=== PATIENT | female | born 1970 | race Caucasian/White ===

== ENCOUNTER → 2017-04-25 | Outpatient (CLI) | payer BC ==
--- NOTE | 2017-04-25 19:08 | WOMENS IMAGING REPORT ---
EXAM DESCRIPTION: 3D SCREENING MAMMO BILAT COMPLETED DATE/TIME: 04/25/2017 7:50 am REASON FOR STUDY: SCREENING MAMMO Z12.31 ENCNTR SCREEN MAMMOGRAM FOR MALIGNANT NEOPLASM OF SLIM COMPARISON: No previous available TECHNIQUE: Standard craniocaudal and mediolateral oblique views of each breast recorded using digita l acquisition and breast tomosynthesis. LIMITATIONS: None. FINDINGS: No masses, calcifications or architectural distortion. No areas of suspicion. Read with the assistance of CAD. .[facility] - R2 Cenova Version 1.3 .[facility] - R2 Cenova Version 1.3 .[facility] Imaging - R2 Cenova Version 2.4 .[facility] - R2 Cenova Version 2.4 .[facility] - R2 Lip Cutter Version 9.2 IMPRESSION: NORMAL MAMMOGRAM. BIRADS 1. BREAST DENSITY: b. There are scattered areas of fibroglandular density. BIRAD: 1 NEGATIVE RECOMMENDATION: ROUTINE SCREENING Please continue yearly bilateral screening tomosynthesis in April 2018 COMMENT: The patient has been notified of the results by letter per MQSA requirements. Additional no tification policies are in place for contacting patient with suspicious or incomplete findings. Quality ID #225: The [employer] recommends an annual screening mammogram for women aged 40 years or over. This facility utilizes a reminder system to ensure that all patients receive reminder letters, and/or direct phone calls for appointments. This includes reminders for routine scr eening mammograms, diagnostic mammograms, or other Breast Imaging Interventions when appropriate. Th is patient will be placed in the appropriate reminder system. The [employer] (ACR) has developed recommendations for screening MRI of the breast s in certain patient populations, to be used in conjunction with mammography. Breast MRI surveillanc e may be appropriate for women with more than 20% lifetime risk of developing breast cancer as deter mined by genetic testing, significant family history of the disease, or history of mantle radiation f or Hodgkins Disease. ACR Practice Guidelines 2008. DBT Technology DBT is a type of tomographic mammography. With conventional mammography, overlapping breast tissue ma y make lesions difficult to detect, even with good compression. DBT uses an x-ray tube that rotates a round the breast, taking images at different angles. These images are then combined to create thin sl ices of the breast that the radiologist can view as a 3D reconstruction. The [employer] unit can perform full-field digital mammograms (2D imaging); or DBT (3D imaging); or both, in a combination mode that quickly performs both the mammogram and the tomosynthesis scan while the breast is still compressed. PQRS 6045F: Fluoroscopic imaging is not utilized for breast tomosynthesis. TECHNICAL DOCUMENTATION: FINDING NUMBER: (1) ASSESSMENT: (1) JOB ID: [id number] [employer]- All Rights Reserved
== END ==
LOC: WI 07:22
PROVIDERS: ATTEND Nurse Practitioner
DX: Z12.31 Encounter for screening mammogram for malignant neoplasm of breast (principal)
CPT/HCPCS: 77063; G0202; 77067

== ENCOUNTER 2017-09-07 10:49 | Emergency (ER) | payer BC ==
[2017-09-07] MEDS ORDERED: ONDANSETRON 4 MG TAB.RAPDIS PO ONE (11:21)
[2017-09-07] MEDS ORDERED: OXYCODONE HCL IR 5 MG TABLET PO ONE (11:21)
--- NOTE | 2017-09-07 11:23 | ER Document Report ---
ED Medical Screen (RME) - General Chief Complaint: Abdominal Pain Stated Complaint: BACK/ABDOMINAL PAIN, DIZZY Time Seen by Provider: 09/07/17 11:17 Notes: RME DISCLOSURE I have seen this patient as part of a Rapid Medical Evaluation and, if applicable, placed any initially appropriate orders. The patient will be seen and fully evaluated, including a full history and physical exam, by a provider ( in Main ED or Fast Track) when a room becomes available. 47-year-old female here with complaints of right-sided abdominal pain radiating down part of the right thigh as well as multiple episodes of nausea and vomiting that started yesterday and have been progressively worsening. She has tried taking ibuprofen for the pain. She has not had any fevers. She still has her gallbladder and her appendix. EXAM Moderate right upper quadrant tenderness to palpation Minimal to mild right lower quadrant tenderness to palpation No epigastric tenderness to palpation TRAVEL OUTSIDE OF THE [place] IN LAST 30 DAYS: No - Related Data Allergies/Adverse Reactions: No Known Allergies Allergy (Unverified 09/07/17 10:50) Past Medical History - Social History Frequency of alcohol use: None Drug Abuse: None Renal/ Medical History: Denies: Hx Peritoneal Dialysis Physical Exam - Vital signs Vitals: Temp Pulse Resp BP Pulse Ox 98.2 F 69 18 148/86 H 98 09/07/17 10:59 09/07/17 10:59 09/07/17 10:59 09/07/17 10:59 09/07/17 10:59 Course - Vital Signs Vital signs: Temp Pulse Resp BP Pulse Ox 98.2 F 69 18 148/86 H 98 09/07/17 10:59 09/07/17 10:59 09/07/17 10:59 09/07/17 10:59 09/07/17 10:59 Doctor's Discharge - Discharge Referrals: ALONSO TUCKER, [Primary Care Provider] - Follow up as needed
[2017-09-07 12:37] LABS: ABSOLUTE EOSINOPHILS # (AUTO) 0.2 10^3/uL (0.0-0.6); ABSOLUTE LYMPHOCYTES (AUTO) 1.8 10^3/uL (0.5-4.7); ABSOLUTE MONOCYTES (AUTO) 0.6 10^3/uL (0.1-1.4); ABSOLUTE NEUT (AUTO) 10.9 10^3/uL (1.7-8.2); BASOPHILS % (AUTO) 0.2 % (0-2); EOSINOPHILS % (AUTO) 1.7 % (0-6); HEMATOCRIT 45.7 % (36.0-47.0); LYMPHOCYTES % (AUTO) 13.4 % (13-45); MEAN CORPUSCULAR HEMOGLOBIN 25.4 pg (27.0-33.4); MEAN CORPUSCULAR HGB CONC 32.8 g/dL (32.0-36.0); MEAN CORPUSCULAR VOLUME 78 fl (80-97); MONOCYTES % (AUTO) 4.4 % (3-13); PLATELET COUNT 277 10^3/uL (150-450); RED BLOOD COUNT 5.89 10^6/uL (3.72-5.28); RED CELL DISTRIBUTION WIDTH 14.6 % (11.5-14.0); SEGMENTED NEUTROPHILS % (AUTO) 80.3 % (42-78); TOTAL CELLS COUNTED % (AUTO) 100 %; WHITE BLOOD COUNT 13.5 10^3/uL (4.0-10.5)
[2017-09-07 12:51] LABS: APPEARANCE,URINE CLEAR; BILIRUBIN,URINE NEGATIVE (NEGATIVE); COLOR,URINE YELLOW; GLUCOSE, URINE NEGATIVE (NEGATIVE); KETONES,URINE TRACE mg/dL (NEGATIVE); LEUKOCYTE ESTERASE,URINE NEGATIVE (NEGATIVE); NITRITE,URINE NEGATIVE (NEGATIVE); PROTEIN,URINE 30 mg/dL (NEGATIVE); URINE SPECIFIC GRAVITY 1.023; UROBILINOGEN,URINE NEGATIVE mg/dL (<2.0)
[2017-09-07 12:58] LABS: ALANINE AMINOTRANSFERASE 33 U/L (9-52); ALBUMIN 4.3 g/dL (3.5-5.0); ALKALINE PHOSPHATASE 81 U/L (38-126); ANION GAP 11 (5-19); ASPARTATE AMINO TRANSFERASE 20 U/L (14-36); BILIRUBIN,DIRECT 0.1 mg/dL (0.0-0.4); BILIRUBIN,TOTAL 0.6 mg/dL (0.2-1.3); BLOOD UREA NITROGEN 12 mg/dL (7-20); CALCIUM 9.3 mg/dL (8.4-10.2); CARBON DIOXIDE 29 mmol/L (22-30); CHLORIDE 100 mmol/L (98-107); GLUCOSE 98 mg/dL (75-110); POTASSIUM 3.6 mmol/L (3.6-5.0); SODIUM 139.7 mmol/L (137-145); TOTAL PROTEIN 6.8 g/dL (6.3-8.2)
--- NOTE | 2017-09-07 13:00 | RADIOLOGY REPORT (SQ) ---
EXAM DESCRIPTION: U/S ABDOMEN LIMITED W/O DOP COMPLETED DATE/TIME: 09/07/2017 12:47 pm REASON FOR STUDY: RUQ pain; eval for cholecystitis cholelithiasis COMPARISON: None. TECHNIQUE: Dynamic and static grayscale images acquired of the right upper quadrant and recorded on PACS. Additional selected color Doppler and spectral images recorded. LIMITATIONS: Study limited due to acoustical interference from fat or from air in the bowel. FINDINGS: PANCREAS: Visualized pancreas and duct normal. Parts of pancreas poorly seen secondary to acoustical interference from fat or from air in the bowel. LIVER: No masses. Echotexture normal. LIVER VASCULATURE: Normal directional flow of the main portal vein and hepatic veins. GALLBLADDER: No stones. Normal wall thickness. No pericholecystic fluid. ULTRASOUND-DETECTED NUÑEZ'S SIGN: Negative. INTRAHEPATIC DUCTS AND COMMON DUCT: CBD and intrahepatic ducts normal caliber. No filling defects. INFERIOR VENA CAVA: Normal flow. AORTA: No aneurysm. RIGHT KIDNEY: Normal size. Normal echogenicity. No solid or suspicious masses. No hydronephrosis. No calcifications. PERITONEAL CAVITY AND RIGHT PLEURAL SPACE: No ascites or effusions. OTHER: No other significant finding. IMPRESSION: NORMAL RIGHT UPPER QUADRANT ULTRASOUND. PANCREAS PARTIALLY OBSCURED BY GAS. TECHNICAL DOCUMENTATION: JOB ID: [id number] [employer]- All Rights Reserved Reading location - IP/workstation name: [email or web address]
[2017-09-07] MEDS ORDERED: FENTANYL CITRATE INJ/PF 100 MCG/2 ML AMPUL IV ONE ×3 (14:08→17:20)
[2017-09-07] MEDS ORDERED: NORMAL SALINE 1000 ML 1,000 ML IV ONE (14:08)
--- NOTE | 2017-09-07 14:09 | ER Document Report ---
ED GI/ - General Chief Complaint: Abdominal Pain Stated Complaint: BACK/ABDOMINAL PAIN, DIZZY Time Seen by Provider: 09/07/17 11:17 Notes: She complains of pain in the right lower abdomen for the last 2 days. Getting worse. Localized on the right lower quadrant. Positive nausea and vomiting. No diarrhea. Questionable fever. No other sick contacts at home. Denies any other symptoms. TRAVEL OUTSIDE OF THE [place] IN LAST 30 DAYS: No - HPI Patient complains to provider of: Abdominal pain Timing/Duration: Gradual Quality of pain: Throbbing Severity at maximum: Moderate Severity in ED: Moderate Pain Level: 3 - Related Data Allergies/Adverse Reactions: No Known Allergies Allergy (Unverified 09/07/17 10:50) Past Medical History - General Information source: Patient - Social History Smoking Status: Never Smoker Cigarette use (# per day): No Frequency of alcohol use: None Drug Abuse: None Lives with: Spouse/Significant other Family History: Reviewed & Not Pertinent Patient has suicidal ideation: No Patient has homicidal ideation: No - Past Medical History Cardiac Medical History: Reports: Hx Hypertension Pulmonary Medical History: Reports: None EENT Medical History: Reports: None Neurological Medical History: Reports: None Endocrine Medical History: Reports: None Renal/ Medical History: Denies: Hx Peritoneal Dialysis Malignancy Medical History: Reports: None GI Medical History: Reports: None Musculoskeltal Medical History: Reports None Psychiatric Medical History: Reports: None Traumatic Medical History: Reports: None Past Surgical History: Reports: Hx Section Review of Systems - Review of Systems Constitutional: Chills, Fever. denies: Diaphoresis EENT: No symptoms reported Cardiovascular: denies: Chest pain, Palpitations, Heart racing Respiratory: denies: Cough, Hurts to breathe, Short of breath Gastrointestinal: Abdominal pain, Nausea, Vomiting. denies: Diarrhea Genitourinary: denies: Burning, Dysuria, Discharge, Flank pain, Hematuria Musculoskeletal: denies: Back pain, Gout, Joint pain Skin: denies: Change in color, Dryness, Rash Hematologic/Lymphatic: denies: Anemia, Blood clots, Easy bleeding, Easy bruising Neurological/Psychological: denies: Confusion, Dementia, Depression Physical Exam - Vital signs Vitals: Temp Pulse Resp BP Pulse Ox 98.2 F 69 18 148/86 H 98 09/07/17 10:59 09/07/17 10:59 09/07/17 10:59 09/07/17 10:59 09/07/17 10:59 Interpretation: Normal - General General appearance: Appears well, Alert - HEENT Head: Normocephalic, Atraumatic Eyes: Normal Pupils: PERRL - Respiratory Respiratory status: No respiratory distress Chest status: Nontender Breath sounds: Normal Chest palpation: Normal - Cardiovascular Rhythm: Regular Heart sounds: Normal auscultation Murmur: No - Abdominal Inspection: Normal Distension: No distension Bowel sounds: Normal Tenderness: Tender - Mild tenderness to palpation in the right lower quadrant with voluntary guarding and no rebounding. Organomegaly: No organomegaly - Back Back: Normal, Nontender - Extremities General upper extremity: Normal inspection, Nontender, Normal color, Normal ROM , Normal temperature General lower extremity: Normal inspection, Nontender, Normal color, Normal ROM , Normal temperature, Normal weight bearing. No: Niharika's sign - Neurological Neuro grossly intact: Yes Cognition: Normal Orientation: AAOx4 Prakash Coma Scale Eye Opening: Spontaneous Prakash Coma Scale Verbal: Oriented Claridge Coma Scale Motor: Obeys Commands Prakash Coma Scale Total: 15 Speech: Normal Motor strength normal: LUE, RUE, LLE, RLE Sensory: Normal - Psychological Associated symptoms: Normal affect, Normal mood - Skin Skin Temperature: Warm Skin Moisture: Dry Skin Color: Normal Course - Re-evaluation Re-evalutation: 09/07/17 14:13 Labs show elevated WBC count. Ultrasound unremarkable. Ordering CT scan. Surgeon on-call requests IV and oral contrast to rule out appendectomy. The patient some fluids and pain meds. Advised that this will be a prolonged workup in the ER based on the oral contrast recommendations. 09/07/17 18:52 Is feeling much better at this time. Patient had abdominal ultrasound, pelvic ultrasound and CT scan. CT scan showed cyst so ultrasound was ordered. Ultrasound confirmed cyst with no obvious torsion. Good blood flow. Consulted [employer] due to the size of the cyst. Dr. Rosalio Sheets was consulted. Does not feel patient needs an operation at this time. Recommends treating with pain medication following up as an outpatient. - Vital Signs Vital signs: Temp Pulse Resp BP Pulse Ox 98.2 F 69 18 148/86 H 98 09/07/17 10:59 09/07/17 10:59 09/07/17 10:59 09/07/17 10:59 09/07/17 10:59 - Laboratory Result Diagrams: 09/07/17 12:05 09/07/17 12:05 Laboratory results interpreted by me: 09/07/17 09/07/17 12:05 12:05 WBC 13.5 H RBC 5.89 H MCV 78 L MCH 25.4 L RDW 14.6 H Seg Neutrophils % 80.3 H Absolute Neutrophils 10.9 H Urine Protein 30 H Urine Ketones TRACE H Discharge - Discharge Clinical Impression: Right ovarian cyst Condition: Good Disposition: HOME, SELF-CARE Instructions: Ovarian Cyst ([facility]) Prescriptions: Hydrocodone/Acetaminophen [[place] 5-325 mg Tablet] 1 tab PO TID 5 Days #15 tablet Ibuprofen [Motrin 600 Mg Tablet] 600 mg PO TID #15 tablet Ondansetron [Zofran Odt 4 mg Tablet] 1 - 2 tab PO Q4H PRN #15 tab.rapdis PRN Reason: For Nausea/Vomiting Referrals: ALONSO TUCKER DO [Primary Care Provider] - Follow up as needed
--- NOTE | 2017-09-07 17:17 | RADIOLOGY REPORT (SQ) ---
EXAM DESCRIPTION: CT ABD/PELVIS WITH IV ORAL COMPLETED DATE/TIME: 09/07/2017 4:48 pm REASON FOR STUDY: rlq pain COMPARISON: None. TECHNIQUE: CT scan of the abdomen and pelvis performed using helical scanning technique with dynamic intravenous contrast injection. Oral contrast. Images reviewed with lung, soft tissue, and bone win dows. Reconstructed coronal and sagittal MPR images reviewed. Delayed images for evaluation of the ur inary system also acquired. All images stored on PACS. All CT scanners at this facility use dose modulation, iterative reconstruction, and/or weight based d osing when appropriate to reduce radiation dose to as low as reasonably achievable (ALARA). [facility]: Dose Right [facility]: CareDose [facility]: Dose Right [facility]: Teradose 4D [facility]: BRAINREPUBLIC CONTRAST TYPE AND DOSE: contrast/concentration: Isovue 370.00 mg/ml; Total Contrast Delivered: 100.0 ml; Total Saline Delivered: 70.0 ml RENAL FUNCTION: BUN 12 creatinine 0.7 RADIATION DOSE: CT Rad equipment meets quality standard of care and radiation dose reduction techniq ues were employed. CTDIvol: 19.8 - 20.9 mGy. DLP: 2153 mGy-cm.. LIMITATIONS: None. FINDINGS: LOWER CHEST: No significant findings. No nodules or infiltrates. LIVER: Normal size. No masses. No dilated ducts. SPLEEN: Normal size. No focal lesions. PANCREAS: No masses. No significant calcifications. No adjacent inflammation or peripancreatic fluid collections. Pancreatic duct not dilated. GALLBLADDER: No identified stones by CT criteria. No inflammatory changes to suggest cholecystitis. ADRENAL GLANDS: No significant masses or asymmetry. RIGHT KIDNEY AND URETER: No solid masses. No significant calcifications. No hydronephrosis or hyd roureter. LEFT KIDNEY AND URETER: No solid masses. No significant calcifications. No hydronephrosis or hydr oureter. AORTA AND VESSELS: No aneurysm. No dissection. Renal arteries, SMA, celiac without stenosis. RETROPERITONEUM: No retroperitoneal adenopathy, hemorrhage or masses. BOWEL AND PERITONEAL CAVITY: No masses or inflammatory changes. No free fluid or peritoneal masses. APPENDIX: Not identified. PELVIS: There is an 8.5 cm right adnexal cyst. The urinary bladder is normal. ABDOMINAL WALL: No masses. No hernias. BONES: No significant or acute findings. OTHER: No other significant finding. IMPRESSION: There is a large right ovarian cyst. No other abnormality is appreciated. TECHNICAL DOCUMENTATION: JOB ID: [id number] Quality ID # [id number]: Final reports with documentation of one or more dose reduction techniques (e.g., Au tomated exposure control, adjustment of the mA and/or kV according to patient size, use of iterative reconstruction technique) 2010 [employer]- All Rights Reserved Reading location - IP/workstation name: [email or web address]
[2017-09-07] MEDS ORDERED: KETOROLAC TROMETHAMINE INJ/PF 30 MG/1 ML SDV IV ONE (17:21)
--- NOTE | 2017-09-07 18:29 | RADIOLOGY REPORT (SQ) ---
EXAM DESCRIPTION: U/S NON-OB PELVIS W/O DOP COMPLETED DATE/TIME: 09/07/2017 6:11 pm REASON FOR STUDY: RLQ pain and mass, possible torsion LMP uncertain COMPARISON: None. TECHNIQUE: Dynamic and static grayscale images acquired of the pelvis via transabdominal approach an d recorded on PACS. Additional selected color Doppler and spectral images recorded. LIMITATIONS: None. FINDINGS: UTERUS: Prominent in size. No masses. ENDOMETRIAL STRIPE: No focal or generalized thickening. No masses. CERVIX: Nabothian cyst is present RIGHT OVARY: 6.5 by 8 x 5.6 cm right adnexal cyst. RIGHT OVARY DOPPLER: Normal arterial vascular flow without evidence for torsion. LEFT OVARY: Ovary not seen. LEFT OVARY DOPPLER: Normal arterial vascular flow without evidence for torsion. FREE FLUID: None noted. OTHER: No other significant finding. MEASUREMENTS: UTERUS: 14.5 x 6.8 x 6.4 cm. ENDOMETRIAL STRIPE: 10 mm. RIGHT OVARY: 3.2 x 2.6 x 2.3 cm with a large cyst adjacent to it. LEFT OVARY: Not seen IMPRESSION: Right adnexal cyst. No ovarian torsion is seen. TECHNICAL DOCUMENTATION: JOB ID: [id number] [employer]- All Rights Reserved Reading location - IP/workstation name: [email or web address]
[2017-09-07 19:11] VITALS: BP 115/63
== END 2017-09-07 19:10 | disposition home or self-care (01) ==
LOC: ER 10:49
DX: N83.201 Unspecified ovarian cyst, right side (principal); R42 Dizziness and giddiness; M54.9 Dorsalgia, unspecified; R10.31 Right lower quadrant pain; R50.9 Fever, unspecified; R11.2 Nausea with vomiting, unspecified
CPT/HCPCS: 96376; 99284; 96361; 96374; 96375; 36415; 83690; 85025; 81025; 80053; 81001; 76856; 76705; 74177; S0119; J3010; J1885; J7030

== ENCOUNTER 2017-09-13 07:04 | Day surgery (SDC) | payer BC ==
[~2017-09-13 07:04] MED LIST: LIDOCAINE 1%/EPINEPHRINE INJ 20 ML VIAL ONE
[2017-09-13 07:49] LABS: APPEARANCE,URINE SLIGHTLY-CLOUDY; BILIRUBIN,URINE NEGATIVE (NEGATIVE); COLOR,URINE YELLOW; GLUCOSE, URINE NEGATIVE (NEGATIVE); KETONES,URINE NEGATIVE (NEGATIVE); LEUKOCYTE ESTERASE,URINE NEGATIVE (NEGATIVE); NITRITE,URINE NEGATIVE (NEGATIVE); PROTEIN,URINE NEGATIVE (NEGATIVE); URINE SPECIFIC GRAVITY 1.023; UROBILINOGEN,URINE NEGATIVE mg/dL (<2.0)
[2017-09-13 07:57] LABS: HEMATOCRIT 41.8 % (36.0-47.0); MEAN CORPUSCULAR HEMOGLOBIN 25.9 pg (27.0-33.4); MEAN CORPUSCULAR HGB CONC 33.5 g/dL (32.0-36.0); MEAN CORPUSCULAR VOLUME 77 fl (80-97); PLATELET COUNT 242 10^3/uL (150-450); RED BLOOD COUNT 5.41 10^6/uL (3.72-5.28); RED CELL DISTRIBUTION WIDTH 14.2 % (11.5-14.0); WHITE BLOOD COUNT 9.5 10^3/uL (4.0-10.5)
[2017-09-13] MEDS ORDERED: MIDAZOLAM 2 MG/2 ML INJ ONE (08:45)
[2017-09-13] MEDS ORDERED: FENTANYL CITRATE INJ/PF 100 MCG/2 ML AMPUL ONE ×2 (08:45→10:47)
[2017-09-13] MEDS ORDERED: ACETAMINOPHEN 100 ML IV ONE (08:45)
[2017-09-13] MEDS ORDERED: PROPOFOL INJ 200 MG/20 ML VIAL IV ONE (08:45)
[2017-09-13] MEDS ORDERED: HYDROMORPHONE HCL INJ/PF 2 MG/ML AMPULE ONE (08:46)
[2017-09-13] MEDS ORDERED: MORPHINE SULFATE 10 MG/ML INJ IV PRN (09:33)
[2017-09-13] MEDS ORDERED: MEPERIDINE HCL/PF INJ 25 MG/1 ML DISP.SYRIN IV PRN (09:33)
[2017-09-13] MEDS ORDERED: FENTANYL CITRATE INJ/PF 100 MCG/2 ML AMPUL IV PRN ×3 (09:33)
[2017-09-13] MEDS ORDERED: PROMETHAZINE HCL INJ 25 MG/1 ML VIAL IV PRN (09:33)
[2017-09-13] MEDS ORDERED: DIPHENHYDRAMINE HCL 50 MG/ML VIAL IV PRN (09:33)
[2017-09-13] MEDS ORDERED: OXYCODONE-ACETAMINOPHEN 5-325 MG TABLET PO PRN ×2 (12:39)
[2017-09-13] MEDS ORDERED: IBUPROFEN 800 MG TABLET PO PRN (12:39)
--- NOTE | 2017-09-13 13:54 | OPERATIVE REPORT E ---
Operative Report NAME: EVY MARTIN : 1970 AGE: 47Y DATE OF SURGERY: 09/13/2017 ROOM: PREOPERATIVE DIAGNOSIS: OVARIAN CYST. POSTOPERATIVE DIAGNOSIS: TORSED HEMORRHAGIC HYDROSALPINX. OPERATION: 1. Laparoscopic converted to open salpingectomy. 2. Lysis of adhesions. SURGEON: DAVID KEITH M.D. ANESTHESIA: Dr. Ward with general. FINDINGS: A right torsed fallopian tube with hemorrhagic fluid encapsulated and adhesed to the epiploica of the cecum. Left fallopian tube and ovary normal. Right ovary normal. Uterus normal with a couple of small fibroids on the posterior fundus and severely retroverted. Appendix normal. Cecum and bowel normal. Some mild adhesions of the omentum to the anterior abdominal wall. COMPLICATIONS: None. ESTIMATED BLOOD LOSS: 50 mL. SPECIMENS REMOVED: Right fallopian tube. PROCEDURE: Patient was taken to the operating room, prepared and draped in a normal sterile fashion in the dorsal lithotomy position. Under sterile conditions, an in and out cath was performed of approximately 30 mL of clear urine. A sterile speculum was placed into the vagina and the cervix was prepped with Betadine. The cervix was then grasped on the anterior lip with a single-tooth tenaculum. A Hulka clamp was placed through the cervix for uterine manipulation. The tenaculum and the speculum were then removed from the vagina, gloves were changed, and attention was turned to the upper portion of the case. An umbilical skin incision was made with a scalpel. It carried through to the underlying layer of fascia with the same scalpel. The fascia was transected in a cut down method, and a 5 mm trocar was introduced. The abdomen was then insufflated to approximately 2 liters of CO2 gas and immediately upon entry of the camera, the cyst was noted. Again, the cyst was still felt to be on the ovary at this point. A 5 mm port was then placed into the left lower quadrant. A 10 mm port was placed into the right lower quadrant. The LigaSure was introduced and some adhesions of the omentum to the anterior abdominal wall, which was obscuring visualization, were taken down using the LigaSure and some blunt dissection with good hemostasis. The uterus and ovaries were then well inspected, and it was noticed that the cyst on the right side was torsed on it pedicle. The torsion was felt to possibly be the IP ligament. The rest of the anatomy was located and the ovary appeared very normal but, again, still felt that this cyst was coming from the ovary at that time. The ovary was relocated and inspected once more and, at that point, it was realized that this was most likely a fallopian tube. The torsed area of the fallopian tube was inspected and located carefully and found to be away from any structures. This was then transected using the LigaSure. Once the LigaSure freed the cyst, the ovary was reinspected and found again to be completely normal and without a cyst. The EndoCatch bag was then introduced through the 10 port, and we attempted several times to place the specimen into the EndoCatch bag laparoscopically. Unfortunately, the specimen was very large and cumbersome and would not go into the EndoCatch bag. We then noted in our attempts to bag the specimen that the specimen actually seemed to be adhered to a part of the cecum which had not been noted before. It did not appear to be directly attached to the cecum but more attached to the epiploica in the fatty tissue of the cecum. We, again, attempted to peel this away, however, the adhesions proved to be very adherent and the specimen could not be from the cecum epiploica; therefore, the decision was made to open the patient with a mini-laparotomy in order to be able to adequately dissect the specimen away from the involved area and we did notify OR personnel that General Surgery may be needed. We then removed our laparoscopic instruments, and we proceeded with an open procedure with a 10 blade scalpel opening the skin down to the fascia with a mini-laparotomy incision. The fascia was then excised and extended laterally with Barron's. The fascia was dissected from the rectus muscle sharply with Barron's. The rectus muscle was divided. The peritoneal cavity was entered bluntly and immediately the specimen was noted. The Bethpage retractor was placed. The specimen was then grasped and with some gentle blunt dissection actually peeled away from the rest of the epiploica. The epiploica was inspected and found to be hemostatic. The cecum was inspected and found to be hemostatic with no evidence of injury. The specimen was identified as the fallopian tube quite readily. The bowel was packed away with a moist laparotomy sponge and the adnexa on both sides was well inspected with the findings from the laparoscopic procedure confirmed. There was a remnant of the fallopian tube still left at the fundus of the uterus, so this was removed using the LigaSure and passed off with the specimen. I then copiously irrigated and found everything to be hemostatic and no injury noted. I, once again, inspected the epiploica as well as the cecum and, again, found no evidence of injury whatsoever. We irrigated once more and after reassuring ourselves that we indeed had removed the proper lesion and that it definitely was the fallopian tube, we concluded the procedure. The rectus muscle was then reapproximated with #0 Vicryl interrupted suture. The fascia was closed with #0 Vicryl as well. The subcutaneous layer was closed with plain catgut, and the skin was closed with 4-0 Vicryl at all of the incisions, and the fascia at the 10 mm laparoscopic incision was closed with an interrupted 4-0 Vicryl as well before closing the skin with 4-0 Vicryl. The patient did tolerate this procedure well. The sponge, lap, and needle counts were correct x2, and the patient was taken to Recovery in stable condition. DICTATING PHYSICIAN: DAVID KEITH M.D. [id number] PHY#: [id number] ID: [id number] JOB#: [id number] ACCT: [id number] cc:DAVID KEITH M.D. >
[2017-09-13] MEDS ORDERED: NEOSTIGMINE METHYLSULFATE 10 MG/10 ML VIAL ONE (14:45)
[2017-09-13] MEDS ORDERED: SUCCINYLCHOLINE CHLORIDE INJ 200 MG/10 ML VIAL ONE (14:45)
[2017-09-13] MEDS ORDERED: GLYCOPYRROLATE INJ 0.4 MG/2 ML VIAL ONE (14:45)
[2017-09-13] MEDS ORDERED: DEXAMETHASONE SOD PHOSPHATE INJ 4 MG/1 ML VIAL ONE (14:45)
[2017-09-13] MEDS ORDERED: ROCURONIUM BROMIDE INJ 50 MG/5 ML VIAL IV ONE (14:45)
[2017-09-13] MEDS ORDERED: LIDOCAINE 2% INJ-PF (20 MG/ML) 2 ML AMPUL ONE (14:45)
[2017-09-13 15:30] VITALS: BP 111/67
== END 2017-09-13 15:35 | disposition home or self-care (01) ==
LOC: OROUT 07:04
PROVIDERS: ATTEND Obstetrics & Gynecology
PROC: 0UT50ZZ Resection of Right Fallopian Tube, Open Approach (ICD-10-PCS; principal; 2017-09-13 09:00)
DX: N70.11 Chronic salpingitis (principal); N83.201 Unspecified ovarian cyst, right side; K66.0 Peritoneal adhesions (postprocedural) (postinfection); Z53.31 Laparoscopic surgical procedure converted to open procedure; D25.9 Leiomyoma of uterus, unspecified; R10.2 Pelvic and perineal pain; R42 Dizziness and giddiness; N93.9 Abnormal uterine and vaginal bleeding, unspecified; I10 Essential (primary) hypertension; E66.9 Obesity, unspecified; Z68.41 Body mass index [BMI] 40.0-44.9, adult; D64.9 Anemia, unspecified; Z79.899 Other long term (current) drug therapy
CPT/HCPCS: 36415; 87205; 87070; 84132; 85027; 81025; 87075; 81001; 88162; 88305 ×2; 58700; J2250; J3490 ×3; J1100; J3010; J1170; J0330; J2704; J0131; 840